=== PATIENT | female | born 1950 | race Caucasian/White ===

== ENCOUNTER 2017-07-18 03:27 | Inpatient (IN) | payer MEDICARE, BC ==
[~2017-07-18] VITALS: Ht 165.1 cm; Wt 52.1 kg
[2017-07-18] MEDS ORDERED: LORazepam 2 MG TABLET PO PRN (06:45)
[2017-07-18 07:23] VITALS: BP 126/74
[2017-07-18 08:24] VITALS: BP 126/74
[2017-07-18] MEDS ORDERED: IBUPROFEN 400 MG TABLET PO PRN ×2 (10:00→21:45)
[2017-07-18] MEDS ORDERED: ACETAMINOPHEN 325 MG TABLET PO PRN ×2 (10:00→21:45)
[2017-07-18] MEDS ORDERED: INFLUENZA VIRUS VACCINE QVS 2017-18 (3YR+)/PF 60 MCG/0.5 ML SYRINGE IM ONE (10:45)
[2017-07-18] MEDS ORDERED: PNEUMOCOCCAL VACCINE POLYVALENT 0.5 ML VIAL [PPSV23] IM ONE (10:45)
[2017-07-18 16:29] VITALS: BP 109/70
[2017-07-18] MEDS: DIVALPROEX SODIUM 250 MG ER TABLET PO SCH (16:32)
[2017-07-18] MEDS: MEMANTINE HCL 10 MG TABLET PO SCH (20:36)
[2017-07-18] MEDS: DONEPEZIL HCL 10 MG TABLET PO SCH (20:36)
[2017-07-18] MEDS: ZOLPIDEM TARTRATE 10 MG TABLET PO PRN (21:58)
[2017-07-19 03:15] VITALS: BP 120/77
[2017-07-19 08:05] VITALS: BP 118/71
[2017-07-19] MEDS: DIVALPROEX SODIUM 250 MG ER TABLET PO SCH ×2 (08:34→16:45)
[2017-07-19 16:04] VITALS: BP 112/60
[2017-07-19] MEDS: MEMANTINE HCL 10 MG TABLET PO SCH (20:58)
[2017-07-19] MEDS: DONEPEZIL HCL 10 MG TABLET PO SCH (20:58)
[2017-07-19] MEDS: ZOLPIDEM TARTRATE 10 MG TABLET PO PRN (21:42)
[2017-07-20 07:12] VITALS: BP 121/62
[2017-07-20] MEDS: DIVALPROEX SODIUM 250 MG ER TABLET PO SCH ×2 (08:00→16:47)
[2017-07-20 08:21] LABS: BASOPHILS % (AUTO) 0.6 % (0.0-2.0); EOSINOPHILS % (AUTO) 2.8 % (1.0-6.0); HEMOGLOBIN 14.9 g/dL (12.0-16.0); LYMPHOCYTES # (AUTO) 1.3 K/uL (1.0-4.8); LYMPHOCYTES % (AUTO) 21.3 % (22.0-44.0); MEAN CORPUSCULAR HEMOGLOBIN 33.1 pg (26.0-34.0); MEAN CORPUSCULAR HGB CONC 33.9 G/dL (31.0-37.0); MEAN CORPUSCULAR VOLUME 98 fL (80-100); MONOCYTES # (AUTO) 0.7 K/uL (0.1-1.0); MONOCYTES % (AUTO) 11.7 % (2.0-9.0); NEUTROPHILS % (AUTO) 63.6 % (40.0-70.0); PLATELET COUNT (AUTO) 245 K/uL (150-450); RED CELL DISTRIBUTION WIDTH 13.7 % (11.5-14.5); WHITE BLOOD COUNT (AUTO) 6.3 K/uL (4.5-11.0)
[2017-07-20 08:55] LABS: HEMOGLOBIN A1C 5.8 % (4.5-6.2)
[2017-07-20 09:02] VITALS: BP 111/66
[2017-07-20 09:10] LABS: ALANINE AMINOTRANSFERASE 21 U/L (12-78); ALBUMIN 3.4 g/dL (3.4-5.0); ANION GAP 6 mmol/L (8-16); ASPARTATE AMINOTRANSFERASE 18 U/L (15-37); BILIRUBIN,TOTAL 0.6 mg/dL (0.1-1.0); CALCIUM, TOTAL 8.7 mg/dL (8.8-10.5); CARBON DIOXIDE 30 mmol/L (22-29); CHLORIDE 106 mmol/L (98-107); CHOL/HDL RATIO 2.6 (3.9-5.7); GLOMERULAR FILTR. RATE CALC > 60 mL/min (>60); POTASSIUM 4.1 mmol/L (3.5-5.1); SODIUM SERUM 142 mmol/L (136-145); THYROID STIMULATING HORMONE 1.42 uIU/mL (0.36-3.74); TOTAL PROTEIN, SERUM 6.9 g/dL (6.4-8.2); UREA NITROGEN, BLOOD 12 mg/dL (7-18)
[2017-07-20 16:19] VITALS: BP 102/67
[2017-07-20] MEDS: DONEPEZIL HCL 10 MG TABLET PO SCH (20:36)
[2017-07-20] MEDS: MEMANTINE HCL 10 MG TABLET PO SCH (20:36)
[2017-07-21 06:45] VITALS: BP 111/62
[2017-07-21 08:31] VITALS: BP 107/68
[2017-07-21] MEDS ORDERED: DONE10TA43 PO (13:41)
[2017-07-21] MEDS ORDERED: MEMA10TA11 PO (13:41)
[2017-07-21 16:19] VITALS: BP 104/62
== END 2017-07-21 18:10 | disposition home or self-care (01) | DRG 57 ==
LOC: EDSTATUS 03:28 → B2X 06:53
PROVIDERS: ADMIT Psychiatry & Neurology Child & Adolescent Psychiatry; ATTEND Psychiatry & Neurology Child & Adolescent Psychiatry
PROC: 3E0234Z Introduction of Serum, Toxoid and Vaccine into Muscle, Percutaneous Approach (ICD-10-PCS; principal; 2017-07-18)
DX: G30.9 Alzheimer's disease, unspecified (principal); F02.81 Dementia in other diseases classified elsewhere, unspecified severity, with behavioral disturbance; Z86.74 Personal history of sudden cardiac arrest; F29 Unspecified psychosis not due to a substance or known physiological condition; F10.10 Alcohol abuse, uncomplicated; F41.9 Anxiety disorder, unspecified; Z71.41 Alcohol abuse counseling and surveillance of alcoholic; Z71.51 Drug abuse counseling and surveillance of drug abuser; Z23 Encounter for immunization
CPT/HCPCS: 82607; 82746; 83036; 84439; 84443; 90471